=== PATIENT | female | born 1955 | race Caucasian/White ===

== ENCOUNTER 2016-10-26 10:39 | Outpatient (CLI) | payer MEDICARE ==
[2016-10-26 11:53] LABS: #Basophils 0.1 thou/uL (0.0-0.2); #Eosinphils 0.3 thou/uL (0.0-0.7); #Lymphocytes 3.2 thou/uL (1.20-3.40); #Monocytes 0.6 thou/uL (0.11-0.59); #Neutrophils 5.2 thou/uL (1.40-6.50); %Basophils 0.6 % (0.0-1.0); %Eosinophils 3.6 % (0.0-10.0); %Monocytes 6.4 % (0.0-10.0); Hematocrit 43.3 % (36.0-47.0); Mean Platelet Volume 6.8 fL (7.4-10.4); Red Blood Cell (RBC) Count 4.34 mill/uL (4.20-5.40); White Blood Cell (WBC) Count 9.4 thou/uL (4.8-10.8)
[2016-10-26 12:27] LABS: ALT (SGPT) 19 U/L (0-55); AST (SGOT) 17 U/L (5-34); Alkaline Phosphatase 39 U/L (40-150); Anion Gap 16 mmol/L (10-20); BUN (Urea Nitrogen) 14 mg/dL (9.8-20.1); Bilirubin, Total 0.8 mg/dL (0.2-1.2); Calc. Creatinine Clearance 0 mL/min (70-130); Calcium 9.1 mg/dL (7.8-10.44); Carbon Dioxide 22 mmol/L (22-29); Chloride 109 mmol/L (98-107); Estimated GFR-MDRD 80; Globulin 2.6 g/dL (2.4-3.5); LDL Cholesterol, Calculated 159 mg/dL; Protein, Total 6.7 g/dL (6.0-8.3)
== END 2016-10-26 10:40 | disposition home or self-care (01) ==
LOC: HPCALD 10:39
PROVIDERS: ATTEND Family Medicine
DX: Z13.6 Encounter for screening for cardiovascular disorders (principal); E66.01 Morbid (severe) obesity due to excess calories; E03.9 Hypothyroidism, unspecified
CPT/HCPCS: 36415; 80053; 80061; 84439; 84443; 85025

== ENCOUNTER 2017-06-03 09:24 | Outpatient (CLI) | payer MEDICARE ==
[2017-06-03 10:02] LABS: #Basophils 0.1 thou/uL (0.0-0.2); #Eosinphils 0.3 thou/uL (0.0-0.7); #Lymphocytes 3.2 thou/uL (1.20-3.40); #Monocytes 0.5 thou/uL (0.11-0.59); #Neutrophils 4.5 thou/uL (1.40-6.50); %Basophils 0.9 % (0.0-1.0); %Lymphocytes 37.6 % (21.0-51.0); %Monocytes 5.4 % (0.0-10.0); %Neutrophils 52.1 % (42.0-75.0); Hemoglobin 14.9 g/dL (12.0-16.0); Mean Corpuscular HGB CONC 34.7 g/dL (32.0-36.0); Mean Corpuscular Hemoglobin 33.9 pg (27.0-31.0); Mean Corpuscular Volume 97.8 fl (81.0-99.0); Mean Platelet Volume 7.7 fL (7.4-10.4); Platelet Count 199 thou/uL (130-400); RBC Distribution Width 12.2 % (11.5-14.5); Red Blood Cell (RBC) Count 4.38 mill/uL (4.20-5.40); White Blood Cell (WBC) Count 8.6 thou/uL (4.8-10.8)
[2017-06-03 10:13] LABS: ALT (SGPT) 27 U/L (8-55); AST (SGOT) 19 U/L (5-34); Albumin 4.2 g/dL (3.5-5.0); Alkaline Phosphatase 36 U/L (40-150); Anion Gap 15 mmol/L (10-20); BUN (Urea Nitrogen) 21 mg/dL (9.8-20.1); Bilirubin, Total 0.6 mg/dL (0.2-1.2); Calc. Creatinine Clearance 0 mL/min (70-130); Calcium 9.1 mg/dL (7.8-10.44); Carbon Dioxide 23 mmol/L (22-29); Cardiac Risk 5.4 (Less than 4.5); Chloride 108 mmol/L (98-107); Cholesterol 216 mg/dl (< 200 Desired); Estimated GFR-MDRD 79; Globulin 2.2 g/dL (2.4-3.5); Glucose 105 mg/dL (70-105); HDL Cholesterol 40 mg/dL (>60 Neg Risk); LDL Cholesterol, Calculated 159 mg/dL; Potassium 4.1 mmol/L (3.5-5.1); Protein, Total 6.4 g/dL (6.0-8.3); Sodium 142 mmol/L (136-145); Triglycerides 87 mg/dL (Less than 150)
[2017-06-03 10:39] LABS: Thyroid Stimulating Hormone 4.882 uIU/mL (0.35-4.94)
[2017-06-03 18:58] LABS: Free T4 (Free Thyroxine) 1.15 ng/dL (0.70-1.48)
== END 2017-06-03 09:25 | disposition home or self-care (01) ==
LOC: HPCALD 09:24
PROVIDERS: ATTEND Family Medicine
DX: Z13.6 Encounter for screening for cardiovascular disorders (principal); E03.9 Hypothyroidism, unspecified; R03.0 Elevated blood-pressure reading, without diagnosis of hypertension
CPT/HCPCS: 36415; 80053; 80061; 84439; 84443; 85025

== ENCOUNTER 2023-11-27 23:19 | Emergency (ER) | payer MEDICARE ==
[2023-11-27] MEDS ORDERED: Ipratropium/Albuterol 3 ML NEB ONE ×2 (23:25→23:47)
[2023-11-27] MEDS ORDERED: predniSONE 20 MG TAB ONE (23:44)
[2023-11-27] MEDS ORDERED: Lorazepam 1 MG TAB ONE (23:51)
[2023-11-28 00:04] LABS: Anion Gap 19 mmol/L (10-20); BUN (Urea Nitrogen) 12 mg/dL (9.8-20.1); Calc. Creatinine Clearance 0 mL/min (70-130); Calcium 9.2 mg/dL (7.8-10.44); Carbon Dioxide 24 mmol/L (23-31); Chloride 100 mmol/L (98-107); Estimated GFR 80; Glucose 108 mg/dL (80-115); Potassium 3.9 mmol/L (3.5-5.1); Sodium 139 mmol/L (136-145)
[2023-11-28 00:05] LABS: #Basophils 0.1 thou/uL (0.0-0.2); #Eosinphils 0.3 thou/uL (0.0-0.7); #Lymphocytes 2.9 thou/uL (1.20-3.40); #Monocytes 0.6 thou/uL (0.11-0.59); #Neutrophils 4.2 thou/uL (1.40-6.50); %Basophils 0.9 % (0.0-1.0); %Eosinophils 3.5 % (0.0-10.0); %Lymphocytes 35.9 % (21.0-51.0); %Monocytes 7.7 % (0.0-10.0); Hematocrit 42.9 % (36.0-47.0); Hemoglobin 14.7 g/dL (12.0-16.0); Mean Corpuscular HGB CONC 34.3 g/dL (32.0-36.0); Mean Corpuscular Volume 93.2 fl (78.0-98.0); Mean Platelet Volume 9.9 fL (7.4-10.4); Platelet Count 189 10x3/uL (130-400); RBC Distribution Width 11.8 % (11.5-14.5); White Blood Cell (WBC) Count 8.2 10x3/uL (4.8-10.8)
[2023-11-28 00:18] LABS: Base Excess-Venous 2.3 mmol/L (-2.0 to 3.0); Bicarbonate (HCO3v) 29.1 mmol/L (22.0-28.0); Calcium, Ionized 1.09 mmol/L (1.15-1.33); Chloride 98 mmol/L (98-107); Hemoglobin - Calc 15.9 g/dL (12.0-16.0); Potassium 3.8 mmol/L (3.5-5.1); Sodium 140 mmol/L (138-145); T. Carbon Dioxide 30.7 mmol/L (22.0-28.0); vO2 Saturation-calc 75.1 % (60.0-85.0)
[2023-11-28 00:27] LABS: SARS-CoV-2 NAA Rapid Test Not Detected (NotDetected)
== END 2023-11-28 01:10 | disposition home or self-care (01) ==
LOC: BURERS 23:19
DX: J10.1 Influenza due to other identified influenza virus with other respiratory manifestations (principal); E66.01 Morbid (severe) obesity due to excess calories; R06.03 Acute respiratory distress; J45.909 Unspecified asthma, uncomplicated; E03.9 Hypothyroidism, unspecified
CPT/HCPCS: 0240U; 71045; 80048; 82330; 82435; 82803; 83605; 84132; 84295; 85014; 85025; J7512; J7620

== ENCOUNTER 2024-05-04 16:52 | Emergency (ER) | payer MEDICARE ==
[2024-05-04] MEDS ORDERED: Oxymetazoline HCl 0.05% (30 ML BOT) ONE (17:44)
== END 2024-05-04 18:00 | disposition home or self-care (01) ==
LOC: BURERS 16:52
DX: R04.0 Epistaxis (principal)
CPT/HCPCS: 99283